=== PATIENT | female | born 1945 | race Caucasian/White ===

== ENCOUNTER 2017-01-25 19:02 | Inpatient (IN) | payer MEDICAID, OTHER ==
[~2017-01-25] VITALS: Ht 162.6 cm; Wt 79.6 kg
[2017-01-25] MEDS ORDERED: ACETAMINOPHEN 500 MG TAB PO STA (22:25)
[2017-01-25] MEDS ORDERED: IBUPROFEN 600 MG TAB PO ONE (22:30)
[2017-01-25] MEDS ORDERED: SODIUM CHLORIDE 0.9% 1L BAG IV* STA (22:34)
[2017-01-25 23:16] LABS: ADD SCAN DIFF NO
[2017-01-25 23:19] LABS: BASOPHILS % 0.3 % (0.0-2.0); EOSINOPHILS % 0.1 % (0.0-7.0); HEMATOCRIT 38.5 % (37.0-47.0); HEMOGLOBIN 12.4 g/dl (12.0-16.0); LYMPHOCYTES # 0.8 10^3/ul (0.8-2.9); LYMPHOCYTES % 4.9 % (15.0-51.0); MEAN CORPUSCULAR HEMOGLOBIN 29.5 pg (29.0-33.0); MEAN CORPUSCULAR HGB CONC 32.2 g/dl (32.0-37.0); MEAN CORPUSCULAR VOLUME 91.7 fl (82.0-101.0); MEAN PLATELET VOLUME 10.5 fl (7.4-10.4); MONOCYTE # 1.1 10^3/ul (0.3-0.9); MONOCYTES % 6.8 % (0.0-11.0); NEUTROPHIL # 13.8 10^3/ul (1.6-7.5); NEUTROPHILS % 86.2 % (39.0-77.0); PLATELET COUNT 204 10^3/UL (140-415); RED CELL DISTRIBUTION WIDTH 14.1 % (11.5-14.5)
[2017-01-25 23:28] LABS: INR 1.04; PROTIME 13.6 Sec (12.2-14.2); PT RATIO 1.1
[2017-01-25 23:35] LABS: ADD UMIC YES; URINE BILIRUBIN (Dip) NEGATIVE (NEGATIVE); URINE BLOOD (Dip) 2+ (NEGATIVE); URINE COLOR YELLOW (YELLOW); URINE GLUCOSE (Dip) NEGATIVE (NEGATIVE); URINE KETONES (Dip) NEGATIVE (NEGATIVE); URINE LEUKOCYTE ESTERASE (Dip) NEGATIVE (NEGATIVE); URINE NITRITE (Dip) NEGATIVE (NEGATIVE); URINE TOTAL PROTEIN (Dip) NEGATIVE (NEGATIVE); URINE UROBILINOGEN (Dip) 0.2 E.U./dL (0.1-1.0)
[2017-01-25 23:45] LABS: ALBUMIN/GLOBULIN RATIO 1.11; BILIRUBIN,INDIRECT 0.7 mg/dl (0-1.1); BILIRUBIN,TOTAL 0.7 mg/dl (0.2-1.3); CALCIUM 9.1 mg/dl (8.4-10.2); CREATININE 0.71 mg/dl (0.44-1.00); POTASSIUM 3.7 mmol/L (3.5-5.1); TOTAL PROTEIN 7.6 g/dl (6.1-8.1)
[2017-01-25 23:48] LABS: SQUAMOUS EPITHELIAL CELL,UR RARE; URINE RBCS 0-2 /HPF (0)
--- NOTE | 2017-01-25 23:53 | RADRPT ---
PROCEDURE: XR Chest. CLINICAL INDICATION: Possible sepsis. TECHNIQUE: Single frontal chest x-ray. COMPARISON: None available. FINDINGS: The cardiomediastinal silhouette is unremarkable. Aortic atherosclerotic vascular calcifications are identified. Mild bibasilar atelectasis is noted. No pneumothorax, pleural effusion or consolidation is seen. No acute osseous abnormality is noted. IMPRESSION: 1. Mild bibasilar atelectasis. 3. Aortic atherosclerosis. RPTAT: HFN .Martha Parrish MD, Date Time Electronically viewed and signed by .Martha Parrish MD, on 01/25/2017 23:52 .N/
[2017-01-25 23:55] LABS: TROPONIN-I 0.083 ng/ml (0.00-0.12)
[2017-01-26 00:55] VITALS: TEMP 98.4
--- NOTE | 2017-01-26 01:13 | ERA ---
ER Documentation Chief Complaint Date/Time DATE: 01/26/17 TIME: 01:06 Chief Complaint BIB RA FROM HOME C/O CHRONIC LEFT HIP PAIN, DENIES TRAUMA HPI This 71-year-old female chronic appearing comes in with a fever today. Patient is on chemotherapy. Denies any nausea vomiting. Denies any cough. Denies any urinary issues. Denies any other current problems. ROS All systems reviewed and are negative except as per history of present illness. PMhx/Soc History of Surgery: Yes Anesthesia Reaction: No Hx Neurological Disorder: No Hx Respiratory Disorders: No Hx Cardiac Disorders: No Hx Psychiatric Problems: No Hx Alcohol Use: No Hx Substance Use: No Hx Tobacco Use: No Smoking Status: Never smoker Physical Exam Vitals Vital Signs Date Time Temp Pulse Resp B/P Pulse Ox O2 Delivery O2 Flow Rate FiO2 01/26/17 00:55 98.4 79 22 103/52 99 Room Air 01/25/17 23:15 98.9 92 24 113/60 96 Room Air 01/25/17 19:19 100.9 103 18 133/63 96 Physical Exam Const: [] Head: Atraumatic Eyes: Normal Conjunctiva ENT: Normal External Ears, Nose and Mouth. Neck: Full range of motion..~ No meningismus. Resp: Clear to auscultation bilaterally Cardio: Regular rate and rhythm, no murmurs Abd: Soft, non tender, non distended. Normal bowel sounds Skin: No petechiae or rashes Back: No midline or flank tenderness Ext: No cyanosis, or edema Neur: Awake and alert Psych: Normal Mood and Affect Result Diagram: 01/25/17224801/25/172248 Results 24 hrs Laboratory Tests Test 01/25/17 22:49 01/25/17 23:00 White Blood Count 16.010^3/ul Red Blood Count 4.2010^6/ul Hemoglobin 12.4g/dl Hematocrit 38.5% Mean Corpuscular Volume 91.7fl Mean Corpuscular Hemoglobin 29.5pg Mean Corpuscular Hemoglobin Concent 32.2g/dl Red Cell Distribution Width 14.1% Platelet Count 24440^3/UL Mean Platelet Volume 10.5fl Neutrophils % 86.2% Lymphocytes % 4.9% Monocytes % 6.8% Eosinophils % 0.1% Basophils % 0.3% Nucleated Red Blood Cells % 0.0/100WBC Neutrophils # 13.810^3/ul Lymphocytes # 0.810^3/ul Monocytes # 1.110^3/ul Eosinophils # 0.010^3/ul Basophils # 0.010^3/ul Nucleated Red Blood Cells # 0.010^3/ul Prothrombin Time 13.6Sec Prothrombin Time Ratio 1.1 INR International Normalized Ratio 1.04 Activated Partial Thromboplast Time 26.0Sec Sodium Level 137mmol/L Potassium Level 3.7mmol/L Chloride Level 104mmol/L Carbon Dioxide Level 24mmol/L Anion Gap 13 Blood Urea Nitrogen 26mg/dl Creatinine 0.71mg/dl Glucose Level 112mg/dl Lactic Acid Level 1.4mmol/L Calcium Level 9.1mg/dl Total Bilirubin 0.7mg/dl Direct Bilirubin 0.00mg/dl Indirect Bilirubin 0.7mg/dl Aspartate Amino Transf (AST/SGOT) 23IU/L Alanine Aminotransferase (ALT/SGPT) 26IU/L Alkaline Phosphatase 89IU/L Troponin I 0.083ng/ml Total Protein 7.6g/dl Albumin 4.0g/dl Globulin 3.60g/dl Albumin/Globulin Ratio 1.11 Urine Color YELLOW Urine Clarity CLEAR Urine pH 6.0 Urine Specific [place] 1.010 Urine Ketones NEGATIVE Urine Nitrite NEGATIVE Urine Bilirubin NEGATIVE Urine Urobilinogen 0.2 E.U./dL Urine Leukocyte Esterase NEGATIVE Urine Microscopic RBC 0-2/HPF Urine Microscopic WBC 0-2/HPF Urine Squamous Epithelial Cells RARE Urine Hemoglobin 2+ Urine Glucose NEGATIVE% Urine Total Protein NEGATIVE Current Medications Medications (Trade) Dose Ordered Sig/Nadeem Route PRN Reason Start Time Stop Time Status Last Admin Dose Admin Acetaminophen (Tylenol Tab) 1,000 mg ONCE STAT PO 01/25/17 22:25 01/25/17 22:26 DC 01/25/17 23:08 Ibuprofen (Motrin) 600 mg ONCE ONCE PO 01/25/17 22:30 01/25/17 22:31 DC 01/25/17 23:08 Sodium Chloride (NS) 2,360 ml BOLUS OVER 2 HOURS STAT IV* 01/25/17 22:34 01/25/17 22:35 DC 01/25/17 23:08 Procedures/[facility] EKG: Rate/Rhythm: Normal Sinus Rhythm QRS, ST, T-waves: No changes consistent w/ acute ischemia Impression: No evidence of ischemia or arrhythmia Chest X-ray 1V Interpreted by me: Soft Tissue: No acute abnormalities Bones: No acute abnormalities Mediastinum/Cardiac Silhouette/Lungs: No acute abnormalities Medical decision-making: Patient has fever. Is currently on chemo. Given elevated white count patient will be [facility] to hospitalist. Cultures pending Departure Diagnosis: Primary Impression: Fever Qualified Code: R50.9 - Fever, unspecified fever cause Condition: Serious MEHRAN CHENG Jan 26, 2017 01:13
[2017-01-26 02:30] VITALS: BP 94/47; PULSE 65; RESP 16
[2017-01-26 02:35] VITALS: Ht 162.6 cm; Wt 79.6 kg
[2017-01-26] MEDS ORDERED: LORA-441 PO (03:37)
[2017-01-26] MEDS ORDERED: ESOM40CA PO (03:37)
[2017-01-26] MEDS ORDERED: SIMV20TA2 PO (03:37)
[2017-01-26] MEDS ORDERED: MECL-77 PO (03:37)
[2017-01-26] MEDS ORDERED: CYAN1TAB SL (03:37)
[2017-01-26] MEDS ORDERED: ATEN50TA PO (03:37)
[2017-01-26] MEDS ORDERED: ASPI-664 PO (03:37)
[2017-01-26] MEDS ORDERED: ERGO500037 PO (03:37)
[2017-01-26] MEDS ORDERED: IBUP400T22 PO (03:37)
[2017-01-26] MEDS ORDERED: MECLIZINE 25 MG TAB PO PRN (04:00)
[2017-01-26] MEDS ORDERED: IBUPROFEN 400 MG TAB PO PRN (04:00)
[2017-01-26] MEDS ORDERED: ONDANSETRON 4 MG INJ IV PRN (04:00)
[2017-01-26] MEDS ORDERED: LORAZEPAM 0.5 MG TAB PO PRN (04:00)
[2017-01-26] MEDS ORDERED: DIPHENHYDRAMINE 50 MG INJ IV ONE (04:00)
[2017-01-26] MEDS: SOD CHLORIDE 0.9% 1,000 ML IV SCH ×3 (04:33→15:00)
[2017-01-26] MEDS: LEVOFLOXACIN 500MG/D5W (PMX) 100 ML IVPB SCH (04:33)
[2017-01-26 06:53] LABS: ADD SCAN DIFF NO
[2017-01-26 07:10] LABS: BASOPHILS % 0.2 % (0.0-2.0); EOSINOPHILS % 0.1 % (0.0-7.0); HEMATOCRIT 35.5 % (37.0-47.0); HEMOGLOBIN 10.9 g/dl (12.0-16.0); LYMPHOCYTES # 0.9 10^3/ul (0.8-2.9); LYMPHOCYTES % 5.6 % (15.0-51.0); MEAN CORPUSCULAR HEMOGLOBIN 29.5 pg (29.0-33.0); MEAN CORPUSCULAR HGB CONC 30.7 g/dl (32.0-37.0); MEAN CORPUSCULAR VOLUME 95.9 fl (82.0-101.0); MEAN PLATELET VOLUME 10.8 fl (7.4-10.4); MONOCYTE # 0.7 10^3/ul (0.3-0.9); MONOCYTES % 4.5 % (0.0-11.0); NEUTROPHIL # 14.4 10^3/ul (1.6-7.5); PLATELET COUNT 183 10^3/UL (140-415); RED CELL DISTRIBUTION WIDTH 14.5 % (11.5-14.5); WHITE BLOOD COUNT 16.4 10^3/ul (4.8-10.8)
[2017-01-26 07:28] VITALS: BP 99/47; RESP 18
[2017-01-26 08:02] LABS: ALBUMIN 2.9 g/dl (3.3-4.9); ALBUMIN/GLOBULIN RATIO 0.93; BILIRUBIN,INDIRECT 0.5 mg/dl (0-1.1); BILIRUBIN,TOTAL 0.5 mg/dl (0.2-1.3); CALCIUM 7.9 mg/dl (8.4-10.2); CREATININE 0.71 mg/dl (0.44-1.00); POTASSIUM 3.5 mmol/L (3.5-5.1)
[2017-01-26] MEDS ORDERED: FOLIC ACID XX SCH (09:00)
[2017-01-26] MEDS ORDERED: CYANOCOBALAMIN XX SCH (09:00)
[2017-01-26] MEDS ORDERED: [UNRECOGNIZED DRUG - OTHER] XX SCH (09:00)
[2017-01-26] MEDS: ASPIRIN (EC) 81 MG TAB PO SCH (09:47)
[2017-01-26] MEDS: FAMOTIDINE 20 MG TAB PO SCH (09:47)
[2017-01-26] MEDS: HEPARIN 5,000 UNIT/0.5 ML VIAL SC SCH ×2 (09:48→20:46)
--- NOTE | 2017-01-26 10:53 | HP ---
Date/Time of Note Date/Time of Note DATE: 01/26/17 TIME: 10:52 Assessment/Plan VTE Prophylaxis VTE Prophylaxis Intervention: heparin Lines/Catheters Urinary Cath still in place: No Assessment/Plan Assessment/Plan 1. Sepsis, likely 2/2 left upper thigh cellulitis vs URI Abx f/u urine and blood culture results check for Influenza ID consult 2. HTN - hold BP med for now given BP on lower side. Resume as needed 3. 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 She presented to ER with fever and cough of over one week duration. Cough is dry for most part, occasionally productive of small whitish sputum. She is accompanied with daughter who also provided some information. Pt also reported redness in her left upper thigh. Pt reported that since she underwent surgery and chemo few years ago, she has been experiencing fever/chiils and bilateral upper thigh redness every few months. Daughter attributed this to "her immune system". Denied chest pain, N/V, abd pain. She however c/o weakness and lack of energy. In ER, pt was febrile with temp of 100.9 and had WBC of 16,000. CXR showed mild bibasilar atelectasis and UA was neg for UTI. PMH/Family/Social Past Medical History Medical History: GERD, high cholesterol, hypertension Past Surgical History Past Surgical Hx: other Social History Alcohol Use: none Smoking Status: Never smoker Drug Use: none Exam/Review of Systems Vital Signs Vitals Vital Signs Date Time Temp Pulse Resp B/P Pulse Ox O2 Delivery O2 Flow Rate FiO2 01/26/17 07:28 98.3 71 18 99/47 97 01/26/17 02:30 Room Air Intake and Output 01/25/17 01/25/17 01/26/17 15:00 23:00 07:00 Intake Total 100 ml Balance 100 ml Exam Constitutional: alert, oriented, well developed Psych: anxiety Head: atraumatic, normocephalic Eyes: EOMI, PERRL Respiratory: clear to auscultation, normal air movement Cardiovascular: other (tachycardic with regular rhythm) Gastrointestinal: non-tender, soft Extremities: other (left upper thigh erythema, which is blanchable) Labs Result Diagram: 01/26/17 0330 01/26/17 0330 Medications Medications Current Medications Aspirin (Halfprin) 81 mg DAILY PO Last administered on 01/26/17 09:47; Admin Dose 81 MG; Start 01/26/17 at 09:00 Ergocalciferol (Drisdol) 50,000 unit MONWEDFRI PO ; Start 01/27/17 at 09:00 Ibuprofen (Motrin) 400 mg Q12 PRN PO PAIN; Start 01/26/17 at 04:00 Lorazepam (Ativan) 0.5 mg HS PRN PO SLEEP; Start 01/26/17 at 04:00 Miscellaneous Information 1 each 1 each DAILY SL ; Start 01/26/17 at 09:00; Status UNV Levofloxacin/ Dextrose 100 ml @ 100 mls/hr Q24H IVPB Last administered on 01/26 04:33; Admin Dose 100 MLS/HR; Start 01/26/17 at 04:00 Sodium Chloride (NS) 1,000 ml @ 100 mls/hr Q10H IV Last administered on 04:33; Admin Dose 100 MLS/HR; Start 01/26/17 at 04:00; Stop 01/27/17 at 04: 00 Heparin Sodium (Porcine) (Heparin (5000 Units/0.5 ml)) 5,000 unit BID SC Last administered on 01/26/17 09:48; Admin Dose 5,000 UNIT; Start 01/26/17 at 09:00 Ondansetron HCl (Zofran Inj) 4 mg Q6H PRN IV NAUSEA AND/OR VOMITING; Start at 04:00 Famotidine (Pepcid) 20 mg DAILY PO Last administered on 01/26/17 09:47; Admin Dose 20 MG; Start 01/26/17 at 09:00 Meclizine HCl (Antivert) 25 mg Q8 PRN PO Dizziness; Start 01/26/17 at 04:00 Atorvastatin Calcium (Lipitor) 10 mg DAILY@21 PO ; Start 01/26/17 at 21:00 MEHRAN MCKEON MD Jan 26, 2017 10:52
[2017-01-26 20:15] VITALS: BP 115/56; RESP 22
[2017-01-26] MEDS ORDERED: NON-FORMULARY/PATIENT OWN MED (Simvastatin 20 MG) PO SCH (21:00)
[2017-01-26] MEDS ORDERED: ATORVASTATIN 10 MG TAB PO SCH (21:00)
[2017-01-27] MEDS: SOD CHLORIDE 0.9% 1,000 ML IV SCH (00:54)
[2017-01-27] MEDS: LEVOFLOXACIN 500MG/D5W (PMX) 100 ML IVPB SCH (04:08)
[2017-01-27 07:40] VITALS: BP 135/58; RESP 18
[2017-01-27] MEDS ORDERED: ERGOCALCIFEROL 50,000 UNIT CAP PO SCH (09:00)
[2017-01-27] MEDS: FAMOTIDINE 20 MG TAB PO SCH (09:47)
[2017-01-27] MEDS: ASPIRIN (EC) 81 MG TAB PO SCH (09:47)
[2017-01-27] MEDS: HEPARIN 5,000 UNIT/0.5 ML VIAL SC SCH (09:48)
--- NOTE | 2017-01-27 13:38 | PDOCDIS ---
Discharge Instructions CONDITION Patient Condition: Good HOME CARE INSTRUCTIONS: Diet Instructions: Regular ACTIVITY: Activity Restrictions: No Restrictions FOLLOW UP/APPOINTMENTS Appointments F/U WITH YOUR PCP IN 1-2 WEEKS OTHER ORDERS: Other Orders: KEEP YOUR LEFT LEG ELEVATED WHILE SLEEPING AND USE COMPRESSION STOCKINGS TO HELP REDUCE THE RISK OF INFECTION AND SWELLING FROM LYMPHEDEMA CARMEN AGUIRRE Jan 27, 2017 13:38
[2017-01-27] MEDS ORDERED: CEPH500C PO (13:40)
--- NOTE | 2017-01-27 17:27 | DS ---
DATE OF ADMISSION: 01/26/2017 DATE OF DISCHARGE: 01/27/2017 DISCHARGE DIAGNOSES: 1. Sepsis secondary to left upper thigh cellulitis from previous vaginal cancer surgery, now [facility] ed. 2. Hypertension. Continue home medications. 3. Dyslipidemia. Continue home medications. HOSPITAL COURSE: The patient is a 71-year-old female with history of cancer involving the vagina. 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 Since then which was in 2011, the patient has been having intermittent redness in her left thigh as well as her suprapubic region. It usually resolves on its own, but this time i s persisted. The patient has fevers. She also had a cough. The patient's chest x-ray did not show any pneumonia. It showed only atelectasis. The patient did have a white count when she arrived an d did have a low-grade fever. She was given antibiotics. Her fever did resolve. She stated that s he felt significantly better. Her cellulitis to left leg ulcer also resolved. The family was told that the likely etiology of this recurring redness in the leg was secondary to this previous surgery involving resection of lymph nodes around her vagina. She was told to elevate her leg and to wear compression stockings. The patient was felt to be stable for discharge. On day of discharge, the p fabián's vitals, labs, and physical exam were stable. She had no acute complaints. Questions answe red. CONDITION ON DISCHARGE: Stable. DISPOSITION: Home. MEDICATIONS: The patient was given a prescription for Keflex 500 mg p.o. q. 12 hours. The patient is to continue her other home medications. FOLLOWUP: The patient is to follow up with her PCP in 1 to 2 weeks. Greater than 30 minutes was spent coordinating discharge of patient. Dictated By: CARMEN AGUIRRE MD BS/HOANG Conf#: [id number] DID#: [id number]
== END 2017-01-27 15:28 | disposition home or self-care (01) | DRG 872 ==
LOC: FTE 19:02 → PP2 01-26 00:44
PROVIDERS: ADMIT Internal Medicine; ATTEND Internal Medicine
DX: A41.9 Sepsis, unspecified organism (principal); L03.116 Cellulitis of left lower limb; I10 Essential (primary) hypertension; J98.11 Atelectasis; E78.5 Hyperlipidemia, unspecified
CPT/HCPCS: 71010; 80053; 81001; 81003; 83605; 84484; 85025; 85610; 85730; 87040; 87086; 87400; 93005; J1200; J1644; J1956; J7030

== ENCOUNTER 2017-10-19 19:13 | Inpatient (IN) | END 2017-10-25 22:40 | disposition home health service (06) | DRG 871 ==